=== PATIENT | female | born 1970 | race Caucasian/White ===

== ENCOUNTER 2019-03-23 17:20 | Emergency (ER) | payer MEDICAID ==
[~2019-03-23] VITALS: Ht 149.9 cm; Wt 67.1 kg
[2019-03-23 17:25] VITALS: Ht 149.9 cm; Wt 67.1 kg
[2019-03-23] MEDS ORDERED: ACETAMINOPHEN 500 MG TAB PO STA (18:14)
[2019-03-23] MEDS ORDERED: IBUP-1542 PO (20:55)
[2019-03-23 21:07] VITALS: BP 133/74; PULSE 69; RESP 18
--- NOTE | 2019-03-25 05:42 | ERD ---
ER Documentation Chief Complaint Chief Complaint R 5th digit finger bleeding s/p possible popped cyst HPI History of Present Illness: 48-year-old female who denies past medical history coming in today with complaint of bleeding to fifth digit of right hand. Patient reports that she had a SKIN tag or lesion, and it got caught on something and GOT pulled off. Bleeding is controlled. Denies any other associated symptoms. At home pharmacological/nonpharmacological treatment for symptoms: Denies Denies social concerns; Denies recent foreign travel ROS All systems reviewed and are negative except as per history of present illness. Medications Home Meds Active Scripts Ibuprofen* (Motrin*) 600 Mg Tab, 600 MG PO Q8 for PAIN/INFLAMMATION, #30 TAB Prov:MAXIMO TEJEDA V PRODUCTION COORDINATOR 03/23/19 PMhx/Soc Medical and Surgical Hx: pt denies Medical Hx, pt denies Surgical Hx History of Surgery: No Hx Neurological Disorder: No Hx Respiratory Disorders: No Hx Cardiac Disorders: No Hx Psychiatric Problems: No Hx Miscellaneous Medical Probl: No Hx Alcohol Use: No Hx Substance Use: No Hx Tobacco Use: No Smoking Status: Never smoker FmHx Family History: No diabetes, No coronary disease Physical Exam Vitals Vital Signs Date Temp Pulse Resp B/P (MAP) Pulse Ox O2 O2 Flow FiO2 Time Delivery Rate 03/23/19 98.2 69 18 133/74 98 Room Air 21:07 (93) 03/23/19 98.1 78 20 170/81 100 17:25 (110) Physical Exam Const: No acute distress Head: Atraumatic Eyes: Normal Conjunctiva ENT: Normal External Ears, Nose and Mouth. Neck: Full range of motion. No meningismus. Resp: Clear to auscultation bilaterally Cardio: Regular rate and rhythm, no murmurs Abd: Soft, non tender, non distended. Normal bowel sounds Skin: No petechiae or rashes, mild bleeding noted to fifth digit of right hand, bleeding controlled, small puncture-like wound, mild swelling, no erythema, no warmth Back: No midline or flank tenderness Ext: No cyanosis, or edema Neur: Awake and alert Psych: Normal Mood and Affect Results 24 hrs Current Medications Medications Dose Sig/Dalton Start Time Status Last (Trade) Ordered Route PRN Stop Time Admin Dose Reason Admin 1,000 mg ONCE STAT 03/23/19 DC 5/8/19 Acetaminophen PO 18:14 03/23/19 18:48 (Tylenol 18:16 Tab) Procedures/MDM ED course includes a thorough examination and history. ED course includes wound care. Medications: Acetaminophen Imaging: X-ray of fifth digit Labs: Low suspicion for life-threatening medical emergency. Otherwise healthy patient presenting with constellation of symptoms likely representing uncomplicated finger injury/skin tag as characterized by history, physical exam findings. X-ray results showing: MPRESSION: 1. No radiographic evidence of acute osseous abnormality noting osteopenia and nonspecific soft tissue swelling of the fifth digit. RPTAT: UU .Arturo Hardy MD, MD Date Time Electronically viewed and signed by .Arturo Hardy MD, MD on 03/23/2019 20:08 Patient reassessment 2105: Patient hemodynamically stable. Wound dressed with sterile gauze. No bleeding noted. No respiratory distress, otherwise r elatively well appearing and nontoxic. Disposition given. Patient educated on diagnoses, prescriptions, follow-up care, return precautions. Strict return precautions given for worsening condition; questions answered discharge. Disposition for discharge with followup in 2 days with PCP/clinic. Departure Diagnosis: Primary Impression: Skin tag Additional Impression: Finger injury Encounter type: initial encounter Laterality: right Qualified Codes: S69.91XA - Unspecified injury of right wrist, hand and finger(s), initial encounter Condition: Stable Patient Instructions: Wound Care Referrals: [facility] YOU HAVE RECEIVED A MEDICAL SCREENING EXAM AND THE RESULTS INDICATE THAT YOU DO NOT HAVE A CONDITION THAT REQUIRES URGENT TREATMENT IN THE EMERGENCY DEPARTMENT. FURTHER EVALUATION AND TREATMENT OF YOUR CONDITION CAN WAIT UNTIL YOU ARE SEEN IN YOUR DOCTORS OFFICE WITHIN THE NEXT 1-2 DAYS. IT IS YOUR RESPONSIBILITY TO MAKE AN APPOINTMENT FOR FOLOW-UP CARE. IF YOU HAVE A PRIMARY DOCTOR --you should call your primary doctor and schedule an appointment IF YOU DO NOT HAVE A PRIMARY DOCTOR YOU CAN CALL OUR PHYSICIAN REFERRAL HOTLINE AT IF YOU CAN NOT AFFORD TO SEE A PHYSICIAN YOU CAN CHOSE FROM THE FOLLOWING [facility] [address] [facility]. [facility] [address] [facility] [facility] [address] [facility] [address] [facility] [address] [facility]. [facility]. [address] [facility] [facility] YOU HAVE RECEIVED A MEDICAL SCREENING EXAM AND THE RESULTS INDICATE THAT YOU DO NOT HAVE A CONDITION THAT REQUIRES URGENT TREATMENT IN THE EMERGENCY DEPARTMENT. FURTHER EVALUATION AND TREATMENT OF YOUR CONDITION CAN WAIT UNTIL YOU ARE SEEN IN YOUR DOCTORS OFFICE WITHIN THE NEXT 1-2 DAYS. IT IS YOUR RESPONSIBILITY TO MAKE AN APPOINTMENT FOR FOLOW-UP CARE. IF YOU HAVE A PRIMARY DOCTOR --you should call your primary doctor and schedule and appointment IF YOU DO NOT HAVE A PRIMARY DOCTOR YOU CAN CALL OUR PHYSICIAN REFERRAL HOTLINE AT . IF YOU CAN NOT AFFORD TO SEE A PHYSICIAN YOU CAN CHOSE FROM THE FOLLOWING [facility] INSTITUTIONS[facility] [address] [place] [address] [facility] [address] [place] [address] [facility] + [facility] [address] [place] [address] Additional Instructions: Thank you very much for allowing us to participate in your care. Your health and safety is our top priority at [facility]. It is important to read all discharge instructions and education provided in your discharge packet. *It is very important to follow with your primary care doctor in 2 to 3 days for a wound check. With your history of diabetes, you are at high risk of complications to the wound including infection.* Call your primary care doctor TOMORROW for an appointment during the next 2-4 days. If the symptoms get worse and your provider is unavailable, return to the Emergency Department immediately. MAXIMO TEJEDA NP March 25, 2019 05:42
== END 2019-03-23 21:09 | disposition home or self-care (01) ==
LOC: FTE 17:20
DX: S61.216A Laceration without foreign body of right little finger without damage to nail, initial encounter (principal); W23.1XXA Caught, crushed, jammed, or pinched between stationary objects, initial encounter; Y92.9 Unspecified place or not applicable
CPT/HCPCS: 73140; Z7502; Z7610